=== PATIENT | male | born 1955 ===

== ENCOUNTER 2019-06-11 09:22 | Outpatient (CLI) | payer OTHER | END 2019-06-11 10:22 | disposition home or self-care (01) | LOC: WOUND MED 09:22 | DX: E11.622 Type 2 diabetes mellitus with other skin ulcer (principal); L98.492 Non-pressure chronic ulcer of skin of other sites with fat layer exposed | CPT/HCPCS: 11042; G0463; A4554; A4930; A6216; A6219 ==

== ENCOUNTER 2019-06-25 08:33 | Outpatient (CLI) | payer OTHER | END 2019-06-25 09:15 | disposition home or self-care (01) | LOC: WOUND MED 08:33 | DX: E11.622 Type 2 diabetes mellitus with other skin ulcer (principal); L98.492 Non-pressure chronic ulcer of skin of other sites with fat layer exposed | CPT/HCPCS: G0463; A4554; A4930; A6216 ==

== ENCOUNTER → 2020-12-20 | Outpatient (CLI) | payer OTHER | END | disposition home or self-care (01) | LOC: PPH VACUNA 01:45 | PROVIDERS: ATTEND Emergency Medicine Pediatric Emergency Medicine | DX: Z23 Encounter for immunization (principal) ==

== ENCOUNTER 2021-10-17 10:38 | Outpatient (CLI) | payer OTHER | END 2021-10-17 10:48 | disposition home or self-care (01) | LOC: PPH VACUNA 10:38 | PROVIDERS: ATTEND Emergency Medicine Pediatric Emergency Medicine | DX: Z23 Encounter for immunization (principal) ==

== ENCOUNTER 2022-06-25 08:39 | Outpatient (CLI) | payer OTHER | END 2022-06-25 08:41 | disposition home or self-care (01) | LOC: SONOGRAMA 08:39 | PROVIDERS: ATTEND Pathology Anatomic Pathology & Clinical Pathology | DX: D34 Benign neoplasm of thyroid gland (principal); E07.9 Disorder of thyroid, unspecified; E04.1 Nontoxic single thyroid nodule; E04.2 Nontoxic multinodular goiter ==